=== PATIENT | male | born 1985 | race Caucasian/White ===

== ENCOUNTER 2018-07-05 19:33 | Emergency (ER) | payer OTHER ==
[~2018-07-05] VITALS: Ht 180.3 cm; Wt 77.1 kg
[2018-07-05 19:40] VITALS: BP 143/90
--- NOTE | 2018-07-05 19:41 | NUR ---
TO BED # 4 AMBULATORY, REPORT GIVEN TO QUEENIE EDWARDS
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
--- NOTE | 2018-07-05 20:12 | NUR ---
Dr. Devlin evaluating patient at bedside.
[2018-07-05] MEDS ORDERED: BACITRACIN OINT 500 UNITS/GM PKT TP ONE (20:45)
[2018-07-05] MEDS ORDERED: LIDOCAINE 1% ***ER ONLY *** 10 MG/ML VIAL INJ ONE (20:45)
[2018-07-05 21:20] VITALS: BP 128/87
== END 2018-07-05 21:21 | disposition home or self-care (01) ==
LOC: MED 19:33
DX: S40.011A Contusion of right shoulder, initial encounter (principal); S50.01XA Contusion of right elbow, initial encounter; S80.01XA Contusion of right knee, initial encounter; V86.96XA Unspecified occupant of dirt bike or motor/cross bike injured in nontraffic accident, initial encounter; Y93.89 Activity, other specified; Y92.89 Other specified places as the place of occurrence of the external cause; Y99.8 Other external cause status
CPT/HCPCS: 12002; 99283; J2001

== ENCOUNTER 2019-02-10 11:19 | Emergency (ER) | payer OTHER ==
[~2019-02-10] VITALS: Ht 180.3 cm; Wt 78.1 kg
[2019-02-10 11:27] VITALS: BP 102/48
--- NOTE | 2019-02-10 11:37 | NUR ---
PT AMB TO BED 6
--- NOTE | 2019-02-10 11:48 | NUR ---
PT BIB SELF TO THE ED WITH THE CHIEF C/O LEFT CHEST PAIN X TODAY. DENIES SOB, DIFFICULTY BREATHING. LUNGS CLEAR. DENIES ANY FEVER, N/V. C/O DIARRHEA X5 TODAY. NO BLOOD IN DIARRHES. ABDOMEN SOFT, ROUND AND NON-TENDER. SCTIVE BOWEL SOUND. DENIES ANY OTHER PROBLEM. VSS. SATURATING 98% IN ROOM AIR. HX OF ANXIETY AND DEPRESSION. ER MD AWARE.
[2019-02-10 13:31] VITALS: BP 108/79
--- NOTE | 2019-02-10 13:31 | NUR ---
Patient discharged with v/s stable. Written and verbal after care instructions given and explained. Patient verbalized understanding. Ambulatory with steady gait. All questions addressed prior to discharge. Advised to follow up with PMD.
== END 2019-02-10 13:31 | disposition home or self-care (01) ==
LOC: MED 11:19
DX: R07.9 Chest pain, unspecified (principal); R19.7 Diarrhea, unspecified; R20.2 Paresthesia of skin; F32.9 Major depressive disorder, single episode, unspecified; F41.9 Anxiety disorder, unspecified
CPT/HCPCS: 93005; 99283

== ENCOUNTER 2019-10-07 18:50 | Emergency (ER) | payer OTHER | END 2019-10-07 21:31 | disposition home or self-care (01) | LOC: MED 18:50 | DX: H93.11 Tinnitus, right ear (principal); F17.210 Nicotine dependence, cigarettes, uncomplicated; Z71.6 Tobacco abuse counseling | CPT/HCPCS: 99282 ==

== ENCOUNTER 2021-04-12 21:35 | Emergency (ER) | payer OTHER ==
[~2021-04-12] VITALS: Ht 175.3 cm; Wt 72.6 kg
[2021-04-12 21:43] VITALS: BP 129/72
[2021-04-12] MEDS ORDERED: KETOROLAC 60 MG/2 ML VIAL IM ONE (22:05)
--- NOTE | 2021-04-12 22:15 | NUR ---
d/c back to [facility] officer Mumtaz #[phone] custody.
== END 2021-04-12 22:15 ==
LOC: MED 21:35
DX: M25.511 Pain in right shoulder (principal); Z02.89 Encounter for other administrative examinations; X58.XXXA Exposure to other specified factors, initial encounter; Y93.89 Activity, other specified; Y92.89 Other specified places as the place of occurrence of the external cause; Y99.8 Other external cause status
CPT/HCPCS: 96372; 99283; J1885